=== PATIENT | female | born 1935 | race Caucasian/White ===

== ENCOUNTER 2019-12-26 13:28 | Inpatient (IN) | payer MEDICARE ==
[2019-12-26] MEDS ORDERED: Acetaminophen 500 MG TAB ONE (14:20)
[2019-12-26] MEDS: Sodium Chloride 0.9% 1,000 ML IV SCH (17:13)
[2019-12-26 17:15] VITALS: BMI 22.6
--- NOTE | 2019-12-26 17:51 | PDOC.HHP ---
Hospitalist HPI - History of Present Illness fever, cough History of Present Illness: THis is an 84 year old female with no past medical history who presented to the ER with fever. THe patient states she had a cough for about one week. It started becoming productive with clear phlegm yesterday. Her was sick with a URI and she was trying to avoid him but thinks she got sick from him . She had some mild muscle aches and developed a fever last night to 101. She did not feel particularly short of breath, denied runny nose or sore throat. She denies orthopnea, PND, leg swelling, dysuria, diarrhea, constipation. Patient lives in [place]. When she went to [facility], she was febrile to 101, tachycardic to 117. She was 94% on room air. EKG showed si nus tachycardia. WBC was 7. Flu swab was negative. MRSA negative. Strep throat culture negative. Chest xray showed LLL pneumonia. She was given IV ceftriaxone and azithromycin and admitted for further workup. She was transferred here for COVID rule out. ED Course: Upon arrival to the ER, the patient had a temp of 98.7, HR of 109. She was noted to be hypoxic to 86% on room air. She was given IV tylenol. Hospitalist ROS - Review of Systems Constitutional: reports: fever. denies: chills Eyes: denies: vision change ENT: denies: ear pain, ear discharge Respiratory: reports: cough (productive with clear phlegm) Cardiovascular: denies: chest pain, palpitations, orthopnea Gastrointestinal: denies: nausea, vomiting, abdominal pain, diarrhea, constipation Genitourinary: denies: dysuria, frequency, incontinence Musculoskeletal: denies: neck pain, shoulder pain Skin: denies: rash, lesions, nan Neurological: denies: weakness, numbness - Medication Medications: Active Medications Generic Name Dose Route Start Last Admin Trade Name Freq PRN Reason Stop Dose Admin Sodium Chloride 1,000 mls @ 100 mls/hr 12/26/19 16:31 12/26/19 17:13 Normal Saline 0.9% IV 12/27/19 03:00 1,000 mls .Q10H TOBY Administration - Exam General Appearance: NAD, awake alert Eye: PERRL, anicteric sclera ENT: normocephalic atraumatic, no oropharyngeal lesions Neck: no JVD Heart: RRR, no murmur, no gallops, no rubs Respiratory: no wheezes, no ronchi Respiratory - other findings: left lower lobe crackles Gastrointestinal: soft, non-tender, non-distended, normal bowel sounds Extremities: no cyanosis, no clubbing, no edema Skin: normal turgor, no lesions, no rashes Neurological: cranial nerve grossly intact, normal sensation to touch, no focal deficits, no new deficit Hospitalist Results - EKG Interpretation EKG: sinus tachycardia Hospitalist H&P A/P - Plan Plan: Chest X ray: report reviewed from [facility] THis is an 84 year old female patient with no past medical history who presents with one week history of cough, one day history of fever, admitted for sepsis secondary to pneumonia Sepsis secondary to pneumonia - febrile, tachycardic, LLL infiltrate on Xray - continue IV ceftriaxone and azithromycin - f/u blood cultures and sputum cultures - check respiratory viral panel - COVID 19 test sent at outside hospital and pending - continue IV fluids Acute hypoxic respiratory failure secondary to pneumonia- resolved - patient was requiring 2L of oxygen, now on room air DIspo: likely d/c in am DVT prophylaxis: lovenox COde status: full code
[2019-12-26] MEDS ORDERED: Acetaminophen 325 MG TAB PO PRN (17:52)
[2019-12-26] MEDS ORDERED: Ondansetron PF 4 MG/2 ML Vial IVP PRN (17:52)
--- NOTE | 2019-12-26 19:54 | PDOC.FMACP ---
Advance Care Planning - Note Participants: patient Summary: Advanced Care Planning was discussed. The diagnosis, prognosis and goals of care were discussed. Appropriate forms and documentation to accomplish the goals of care were discussed. All questions were answered. The Palliative Care Team will be engaged to assist with completion of any outstanding forms that are needed. Patient want to be full code.
[2019-12-26] MEDS ORDERED: Famotidine/PF 20 mg/2ml Vial SLOW IVP SCH (21:00)
[2019-12-27] MEDS: Sodium Chloride 0.9% 1,000 ML IV SCH (04:07)
[2019-12-27 06:21] LABS: #Eosinphils 0.1 thou/uL (0.0-0.7); #Monocytes 0.7 thou/uL (0.11-0.59); #Neutrophils 2.1 thou/uL (1.40-6.50); %Basophils 0.2 % (0.0-1.0); %Eosinophils 2.7 % (0.0-10.0); %Lymphocytes 40.5 % (21.0-51.0); %Monocytes 14.3 % (0.0-10.0); %Neutrophils 42.3 % (42.0-75.0); Hemoglobin 12.4 g/dL (12.0-16.0); Mean Corpuscular HGB CONC 33.5 g/dL (32.0-36.0); Mean Corpuscular Hemoglobin 30.9 pg (27.0-31.0); Mean Corpuscular Volume 92.5 fL (78.0-98.0); Mean Platelet Volume 7.9 fL (7.4-10.4); Platelet Count 194 thou/uL (130-400); Red Blood Cell (RBC) Count 4.01 mill/uL (4.20-5.40)
[2019-12-27 06:41] LABS: Anion Gap 11 mmol/L (10-20); BUN (Urea Nitrogen) 8 mg/dL (9.8-20.1); Calc. Creatinine Clearance 48 mL/min (70-130); Calcium 8.5 mg/dL (7.8-10.44); Carbon Dioxide 22 mmol/L (23-31); Chloride 106 mmol/L (98-107); Estimated GFR-MDRD 70; Glucose 87 mg/dL (83-110); Potassium 3.6 mmol/L (3.5-5.1); Sodium 135 mmol/L (136-145)
[2019-12-27] MEDS ORDERED: Azithromycin 250 MG TAB PO SCH (09:00)
[2019-12-27] MEDS ORDERED: FLU VACC TS2019-20(65YR UP)/PF 180 MCG/0.5 ML SYRINGE IM ONE (09:00)
[2019-12-27] MEDS ORDERED: cefTRIAXone\\ROCEPHIN 1 GM in Sodium Chloride 0.9% 100 ML IVPB SCH (12:00)
--- NOTE | 2019-12-27 13:29 | PDOC.HOSPP ---
- Subjective Encounter Date: 12/27/19 Encounter Time: 10:00 Subjective: lying in the bed, some crackles but otherwise feels ok. afebrile, resp viral panel +ve w..pneumovirus, will cancel Cd19 testing. - Objective Vital Signs & Weight: Vital Signs (12 hours) Temp Pulse Resp BP Pulse Ox 12/27/19 12:03 98.3 F 75 16 123/78 95 12/27/19 08:44 97 12/27/19 07:30 96 12/27/19 07:28 97.7 F 87 16 133/81 97 12/27/19 03:55 98.5 F 72 18 127/76 95 Weight Weight 128 lb I&O: 12/26/19 12/27/19 12/28/19 06:59 06:59 06:59 Intake Total 240 400 Balance 240 400 Result Diagrams: 12/27/19 06:13 12/27/19 06:13 Hospitalist ROS - Medication Medications: Active Medications Generic Name Dose Route Start Last Admin Trade Name Freq PRN Reason Stop Dose Admin Azithromycin 250 mg 12/27/19 09:00 12/27/19 07:33 Zithromax PO 12/30/19 09:01 250 mg DAILY TOBY Administration Ceftriaxone Sodium 1 gm/ 100 mls @ 200 mls/hr 12/27/19 12:00 12/27/19 12:04 Sodium Chloride IVPB 100 mls Q24HR TOBY Administration - Exam General Appearance: NAD, awake alert Eye: PERRL ENT: normocephalic atraumatic Neck: supple Heart: RRR Respiratory: CTAB Gastrointestinal: soft, normal bowel sounds Neurological: cranial nerve grossly intact, no focal deficits Hosp A/P - Plan Sepsis secondary to pneumonia - febrile, tachycardic, LLL infiltrate on Xray - continue IV ceftriaxone and azithromycin - f/u blood cultures and sputum cultures---> GNR - respiratory viral panel-------------->+ve for metapneumovirus - COVID 19 test sent at outside hospital and pending----------> will cancel - continue IV fluids Acute hypoxic respiratory failure secondary to pneumonia- resolved - patient was requiring 2L of oxygen, now on room air - will ambulate today/ - check pulse ox - will switch abx to PO LQ
[2019-12-27] MEDS ORDERED: Famotidine/PF 20 mg/2ml Vial SLOW IVP SCH (21:00)
[2019-12-28 12:38] VITALS: BP 118/75; TEMP 97.8
--- NOTE | 2019-12-29 08:57 | DIS ---
DATE OF ADMISSION: 12/26/2019 DATE OF DISCHARGE: 12/28/2019 DISCHARGE DIAGNOSES: 1. Sepsis secondary to pneumonia. 2. Acute hypoxic respiratory failure secondary to pneumonia. MEDICATIONS: Levaquin 750 mg p.o. every other days. PHYSICAL EXAMINATION: GENERAL: On the day of discharge, she is afebrile and quite anxious to go home. CARDIOVASCULAR: Regular rate and rhythm without murmurs, rubs, or gallops. LUNGS: She still has some congestions, but breathing without any respiratory distress, and her sats are 94% in room air. Has good aeration mid lungs. HOSPITAL COURSE: This is an 84-year-old female without significant past medical history, admitted with a fever and cough of 1-week duration. She also stated that the cough became productive and clear phlegm. Chest x-ray showed left lower lobe pneumonia and she was given IV ceftriaxone and azithromycin for 2 days. The sputum culture grew gram-negative rods. Respiratory viral panel was positive for metapneumovirus. The coronavirus ID-19 was pending at that time. We checked with Maternal Child Nurse, Dr. Judge peripherally and since viral panel was positive for metapneumovirus and the chances of coronavirus ID-19 being positive are less. The patient is also clinically improving and she is ambulating without any respiratory distress, so she will be discharged with Levaquin for a 10-day course as every other day. It has been decided to cancel the pending order to test for COVID-19. DISCHARGE INSTRUCTIONS: Activity as tolerated. Healthy heart diet. Follow up with primary care physician in 1 week. Job ID: [id number] [facility]ad
== END 2019-12-28 13:28 | disposition home or self-care (01) | DRG 871 ==
LOC: ERS 13:28 → SURG B 15:09
PROVIDERS: ADMIT Internal Medicine; ATTEND Internal Medicine
DX: A41.89 Other specified sepsis (principal); J96.01 Acute respiratory failure with hypoxia; J12.3 Human metapneumovirus pneumonia
CPT/HCPCS: 36415; 80048; 85025; 87070; 87205; 87633; J0696; J3490; S0028

== ENCOUNTER 2021-07-26 13:19 | Outpatient (CLI) | payer MEDICARE | END 2021-07-26 13:20 | disposition home or self-care (01) | LOC: BICULT 13:19 | PROVIDERS: ATTEND Nurse Practitioner | DX: E04.2 Nontoxic multinodular goiter (principal) | CPT/HCPCS: 76536 ==

== ENCOUNTER 2022-02-01 13:24 | Outpatient (CLI) | payer MEDICARE | END 2022-02-01 13:25 | disposition home or self-care (01) | LOC: BICULT 13:24 | PROVIDERS: ATTEND Nurse Practitioner | DX: E04.1 Nontoxic single thyroid nodule (principal) | CPT/HCPCS: 76536 ==

== ENCOUNTER 2023-08-03 21:50 | Observation (INO) | payer MEDICARE ==
[~2023-08-03 21:50] MED LIST: Iopamidol-370 76% 500 ML MDV (1 ML CHARGE) ONE
[2023-08-03 22:49] LABS: #Basophils 0.1 thou/uL (0.0-0.2); #Eosinphils 0.1 thou/uL (0.0-0.7); #Monocytes 0.8 thou/uL (0.11-0.59); #Neutrophils 3.3 thou/uL (1.40-6.50); %Basophils 0.6 % (0.0-1.0); %Eosinophils 1.6 % (0.0-10.0); %Lymphocytes 47.7 % (21.0-51.0); %Neutrophils 39.9 % (42.0-75.0); Hemoglobin 13.7 g/dL (12.0-16.0); Mean Corpuscular HGB CONC 32.6 g/dL (32.0-36.0); Mean Corpuscular Hemoglobin 29.7 pg (27.0-31.0); Mean Corpuscular Volume 90.9 fl (78.0-98.0); Mean Platelet Volume 10.6 fL (7.4-10.4); Platelet Count 238 10x3/uL (130-400); RBC Distribution Width 14.8 % (11.5-14.5); Red Blood Cell (RBC) Count 4.62 mill/uL (4.20-5.40); White Blood Cell (WBC) Count 8.3 10x3/uL (4.8-10.8)
[2023-08-03 23:18] LABS: ALT (SGPT) 13 U/L (8-55); AST (SGOT) 20 U/L (5-34); Albumin 4.2 g/dL (3.4-4.8); Alkaline Phosphatase 89 U/L (40-110); Anion Gap 14 mmol/L (10-20); BUN (Urea Nitrogen) 18 mg/dL (9.8-20.1); Bilirubin, Total 0.3 mg/dL (0.2-1.2); Calc. Creatinine Clearance 0 mL/min (70-130); Calcium 9.7 mg/dL (7.8-10.44); Carbon Dioxide 25 mmol/L (23-31); Chloride 105 mmol/L (98-107); Estimated GFR 42; Globulin 3.8 g/dL (2.4-3.5); Glucose 92 mg/dL (83-110); Potassium 3.9 mmol/L (3.5-5.1); Sodium 140 mmol/L (136-145)
[2023-08-03 23:20] LABS: Troponin I Less than 0.010 ng/mL (< 0.028)
[2023-08-04] MEDS ORDERED: Cyclobenzaprine 10 MG TAB ONE (00:37)
[2023-08-04] MEDS ORDERED: traMADol HCl 50 MG TAB PO PRN (01:39)
[2023-08-04] MEDS ORDERED: Acetaminophen 325 MG TAB PO PRN (01:46)
[2023-08-04] MEDS ORDERED: Ondansetron PF 4 MG/2 ML Vial IVP PRN (01:46)
[2023-08-04] MEDS ORDERED: Acetaminophen 650 MG Suppository PR PRN (01:46)
[2023-08-04] MEDS ORDERED: Ondansetron ODT 4 MG TAB PO PRN (01:46)
[2023-08-04 03:27] VITALS: BMI 23.4
[2023-08-04 04:32] LABS: #Eosinphils 0.2 thou/uL (0.0-0.7); #Monocytes 0.8 thou/uL (0.11-0.59); #Neutrophils 2.9 thou/uL (1.40-6.50); %Basophils 0.4 % (0.0-1.0); %Eosinophils 2.2 % (0.0-10.0); %Monocytes 12.1 % (0.0-10.0); Hematocrit 40.8 % (36.0-47.0); Hemoglobin 13.2 g/dL (12.0-16.0); Mean Corpuscular HGB CONC 32.4 g/dL (32.0-36.0); Mean Corpuscular Hemoglobin 29.3 pg (27.0-31.0); Mean Corpuscular Volume 90.7 fl (78.0-98.0); Mean Platelet Volume 11.6 fL (7.4-10.4); Platelet Count 224 10x3/uL (130-400); RBC Distribution Width 14.9 % (11.5-14.5); White Blood Cell (WBC) Count 6.9 10x3/uL (4.8-10.8)
[2023-08-04 05:00] LABS: Anion Gap 14 mmol/L (10-20); BUN (Urea Nitrogen) 16 mg/dL (9.8-20.1); Calc. Creatinine Clearance 35 mL/min (70-130); Calcium 9.4 mg/dL (7.8-10.44); Carbon Dioxide 22 mmol/L (23-31); Chloride 106 mmol/L (98-107); Estimated GFR 51; Glucose 80 mg/dL (83-110); Potassium 3.6 mmol/L (3.5-5.1); Sodium 138 mmol/L (136-145)
[2023-08-04 05:11] LABS: Troponin I Less than 0.010 ng/mL (< 0.028)
[2023-08-04 06:30] LABS: Troponin I Less than 0.010 ng/mL (< 0.028)
[2023-08-04] MEDS ORDERED: ADENOSINE 60 MG/20 ML SDV ONE (08:48)
[2023-08-04] MEDS ORDERED: Aspirin 81 mg Enteric Coated Tablet PO SCH (09:00)
[2023-08-04] MEDS ORDERED: Methocarbamol 500 MG TAB PO PRN (14:44)
[2023-08-04 15:45] VITALS: BP 123/69; TEMP 97.4
[2023-08-04] MEDS ORDERED: Amlodipine 5 MG TAB PO SCH (15:45)
[2023-08-04] MEDS ORDERED: Atorvastatin Calcium 40 MG TAB PO SCH (21:00)
[2023-08-05] MEDS ORDERED: Amlodipine 5 MG TAB PO SCH (09:00)
[2023-08-07] MEDS ORDERED: FLU VACC QS2023(65UP)/MF59C/PF 60 MCG/0.5 ML SYRINGE IM ONE (09:00)
== END 2023-08-04 18:11 | disposition home or self-care (01) ==
LOC: ERS 21:50 → 2SW 08-04 00:57
PROVIDERS: ADMIT Student in an Organized Health Care Education/Training Program; ATTEND Internal Medicine
DX: R07.89 Other chest pain (principal); R94.39 Abnormal result of other cardiovascular function study; I07.1 Rheumatic tricuspid insufficiency; I10 Essential (primary) hypertension; E78.5 Hyperlipidemia, unspecified; Z79.82 Long term (current) use of aspirin; Z79.899 Other long term (current) drug therapy
CPT/HCPCS: 71275; 74174; 78452; 80048; 80053; 83880; 84484 ×3; 85025 ×2; 93005; 93017; 93306; 99285; A9502; 36415; G0378; J0153; Q9967